=== PATIENT | male | born 1980 | race Caucasian/White ===

== ENCOUNTER 2022-06-12 19:55 | Emergency (ER) | payer BC, OTHER ==
[~2022-06-12 19:55] MED LIST: Iopamidol 370 76% 100 ML VIAL ONE
[2022-06-12] MEDS ORDERED: Ipratropium/Albuterol 3 ML NEB ONE (20:51)
[2022-06-12] MEDS ORDERED: Ibuprofen 200 MG TAB ONE (20:58)
[2022-06-12 21:01] LABS: ALT (SGPT) 62 U/L (8-55); AST (SGOT) 44 U/L (5-34); Albumin 3.9 g/dL (3.5-5.0); Alkaline Phosphatase 97 U/L (40-110); Anion Gap 14 mmol/L (10-20); BUN (Urea Nitrogen) 7 mg/dL (8.9-20.6); Bilirubin, Total 0.9 mg/dL (0.2-1.2); Calc. Creatinine Clearance 0 mL/min (70-130); Calcium 8.7 mg/dL (7.8-10.44); Carbon Dioxide 24 mmol/L (22-29); Chloride 102 mmol/L (98-107); Estimated GFR 89; Globulin 3.7 g/dL (2.4-3.5); Glucose 136 mg/dL (70-105); Potassium 3.6 mmol/L (3.5-5.1); Protein, Total 7.6 g/dL (6.0-8.3); Sodium 136 mmol/L (136-145)
[2022-06-12 21:01] LABS: Bilirubin Neg (Negative); Blood, Urine Negative (Negative); Clarity Clear (Clear); Glucose, Urine (Dipstick) Normal (Negative); Ketone, Urine Negative (Negative); Leukocyte 25 (Negative); Nitrite Negative (Negative); Protein, Urine (Dipstick) Negative (Neg-Trace); Specific Gravity, Urine 1.005 (1.005-1.030); Urobilinogen Normal mg/dL (Less than 2)
[2022-06-12 21:10] LABS: Hemoglobin 14.9 g/dL (13.5-17.5); MDiff Complete? YES; Mean Corpuscular HGB CONC 33.9 g/dL (32.0-36.0); Mean Corpuscular Hemoglobin 28.5 pg (27.0-33.0); Mean Corpuscular Volume 83.9 fl (81.2-95.1); Mean Platelet Volume 9.7 fl (7.4-10.4); Platelet Count 202 10x3/uL (150-450); Red Blood Cell (RBC) Count 5.23 10x6/uL (4.32-5.72); White Blood Cell (WBC) Count 7.1 10x3/uL (3.5-10.5)
[2022-06-12 21:12] LABS: INR-International Normal Ratio 1.1; PTT 27.6 sec (22.0-33.0); Prothrombin Time 11.4 sec (9.5-12.1)
[2022-06-12 21:30] LABS: Bacteria/HPF None Seen HPF (None Seen); RBC/HPF 0-3 HPF (0-3); Squamous Epithelial 0-3 HPF (0-3); WBC/HPF 0-3 HPF (0-3)
[2022-06-12 21:34] LABS: SARS-CoV-2 NAA Rapid Test Not Detected (NotDetected)
[2022-06-12 21:57] LABS: Eosinophils 1 % (0-10); Lymphocytes 17 % (21-51); Monocytes 10 % (0-10); Neutrophil 53 % (42-75); Reactive Lymphocytes 19 % (0-10)
[2022-06-12 22:00] LABS: Diff Comment (RBC Morph SCRN) NORMAL; Platelet Morphology Comment Appears Adequate
[2022-06-12] MEDS ORDERED: cefTRIAXone\\ROCEPHIN 2 GM VIAL ONE (22:06)
[2022-06-12] MEDS ORDERED: Azithromycin 500 MG VIAL ONE (22:31)
[2022-06-12 23:35] LABS: Lactic Acid 1.2 mmol/L (0.5-2.2)
== END 2022-06-13 00:44 | disposition short-term general hospital (02) ==
LOC: CSHERS 19:55
DX: J18.9 Pneumonia, unspecified organism (principal); A41.9 Sepsis, unspecified organism; Z20.822 Contact with and (suspected) exposure to COVID-19
CPT/HCPCS: 71045; 71275; 80053; 81003; 81015; 83605; 83880; 85025; 85610; 85730; 87040; 87086; 93005; 94640; 94760; 96361; 96365; 96367; J0456; J0696; J7620; Q9967

== ENCOUNTER 2024-05-02 09:12 | Outpatient (CLI) | payer BC | END 2024-05-02 09:13 | disposition home or self-care (01) | LOC: CSHSLEEP 09:12 | PROVIDERS: ATTEND Family Medicine | DX: G47.33 Obstructive sleep apnea (adult) (pediatric) (principal); R53.83 Other fatigue; E66.9 Obesity, unspecified; Z68.43 Body mass index [BMI] 50.0-59.9, adult | CPT/HCPCS: 95811 ==